=== PATIENT | female | born 1950 | race Two or more races ===

== ENCOUNTER 2021-12-23 10:28 | Outpatient (CLI) | payer OTHER | END 2021-12-23 10:38 | disposition home or self-care (01) | LOC: RAD 10:28 | DX: M25.569 Pain in unspecified knee (principal) ==

== ENCOUNTER 2022-06-16 08:40 | Outpatient (CLI) | payer OTHER | END 2022-06-16 08:41 | disposition home or self-care (01) | LOC: RAD 08:40 | PROVIDERS: ATTEND Internal Medicine Pulmonary Disease | DX: J45.31 Mild persistent asthma with (acute) exacerbation (principal) ==

== ENCOUNTER 2022-08-28 10:52 | Outpatient (CLI) | payer OTHER | END 2022-08-28 11:02 | disposition home or self-care (01) | LOC: MAMO-SONO 10:52 | PROVIDERS: ATTEND Surgery | DX: D24.1 Benign neoplasm of right breast (principal); D24.2 Benign neoplasm of left breast; N60.21 Fibroadenosis of right breast; N60.11 Diffuse cystic mastopathy of right breast; N60.22 Fibroadenosis of left breast; N60.12 Diffuse cystic mastopathy of left breast ==

== ENCOUNTER 2022-10-15 15:35 | Outpatient (CLI) | payer OTHER | END 2022-10-15 15:38 | disposition home or self-care (01) | LOC: LAB 15:35 | PROVIDERS: ATTEND Radiology Diagnostic Radiology | DX: G45.9 Transient cerebral ischemic attack, unspecified (principal) ==

== ENCOUNTER 2023-01-14 12:28 | Outpatient (CLI) | payer OTHER | END 2023-01-14 12:32 | disposition home or self-care (01) | LOC: TOM 12:28 | PROVIDERS: ATTEND Psychiatry & Neurology Neurology | DX: G93.89 Other specified disorders of brain (principal) ==